=== PATIENT | female | born 1970 | race Caucasian/White ===

== ENCOUNTER → 2016-05-09 | Outpatient (CLI) | payer MEDICAID, OTHER | LOC: CIMAGING 09:24 | PROVIDERS: ATTEND Family Medicine | DX: M24.851 Other specific joint derangements of right hip, not elsewhere classified (principal); M24.852 Other specific joint derangements of left hip, not elsewhere classified; M46.97 Unspecified inflammatory spondylopathy, lumbosacral region; M76.21 Iliac crest spur, right hip; M76.22 Iliac crest spur, left hip | CPT/HCPCS: 72100-PO; 73521-PO ==

== ENCOUNTER → 2016-05-29 | Outpatient (CLI) | payer OTHER ==
[~2016-05-29] MED LIST: GADOBUTROL 10 ML VIAL IVP ONE
== END ==
LOC: FIMAGING 06:57
PROVIDERS: ATTEND Family Medicine
DX: M51.16 Intervertebral disc disorders with radiculopathy, lumbar region (principal); M51.26 Other intervertebral disc displacement, lumbar region
CPT/HCPCS: A9585

== ENCOUNTER 2016-06-14 14:32 | Emergency (ER) | payer OTHER ==
[~2016-06-14 14:32] MED LIST changes: -GADOBUTROL 10 ML VIAL IVP ONE; +NS 1,000 ML IV ONE
[2016-06-14 14:48] VITALS: RESP 18
[2016-06-14] MEDS ORDERED: ONDANSETRON 4 MG/2 ML VIAL IVP ONE (15:12)
[2016-06-14 15:18] LABS: % IMMATURE GRANULYOCYTES 0.4 % (0.0-1.1); ABSOLUTE IMMATURE GRANULOCYTES 0.03 10^3/uL (0.00-0.10); ADD DIFF? NO; ADD MORPH? NO; ADD SCAN? NO; ATYPICAL LYMPHOCYTE FLAG 10 (0-99); FRAGMENT RBC FLAG 0 (0-99); HEMATOCRIT 46.3 % (38.0-47.0); HEMOGLOBIN 15.3 g/dL (12.6-16.3); LEFT SHIFT FLG 0 (0-99); LIPEMIA HEMOLYSIS FLAG 80 (0-99); MEAN CELL HEMOGLOBIN 28.2 pg (27.9-34.1); MEAN CELL VOLUME 85.3 fL (81.5-99.8); MEAN PLATELET VOLUME 8.9 fL (8.7-11.7); PLATELET CLUMPS FLAG 0 (0-99); PLATELET COUNT 377 10^3/uL (150-400); RED BLOOD CELL COUNT 5.43 10^6/uL (4.18-5.33); RED CELL DISTRIBUTION WIDTH 13.2 % (11.5-15.2)
[2016-06-14 15:23] LABS: COLOR YELLOW; LEUKOCYTE ESTERASE,URINE NEGATIVE (NEGATIVE); NITRITE,URINE NEGATIVE (NEGATIVE)
[2016-06-14 15:33] LABS: ANION GAP 15 mEq/L (8-16); CALCIUM 9.3 mg/dL (8.5-10.4); CARBON DIOXIDE 24 mEq/l (22-31); CHLORIDE 102 mEq/L (97-110); CREATININE 0.7 mg/dL (0.6-1.0); GLOMERULAR FILTRATION RATE > 60; GLUCOSE 82 mg/dL (70-100); POTASSIUM 4.1 mEq/L (3.5-5.2); SODIUM 141 mEq/L (134-144)
[2016-06-14] MEDS ORDERED: KETOROLAC 15 MG/1 ML SDV IVP ONE (15:34)
--- NOTE | 2016-06-14 15:39 | UCPHY ---
H & P Patient Type: Established Chief Complaint Nursing Narrative: pt sent from Dr. Castaneda's office with right sided abd/flank pain, hx of kidney stones. Pain and vomiting began on sunday per pt Time Seen by Provider: 06/14/16 15:28 HPI/ROS: Chief Complaint: Right-sided back pain HPI: 45-year-old woman with a history of chronic back pain and kidney stones started having nausea and vomiting on Sunday night associated with some right- sided back pain rate with radiates around to the front. She has a history of kidney stones in the past was never had hematuria. She has required lithotripsy twice. No fevers or chills. No dysuria. Has had some constipation but no diarrhea. No abdominal pain. Has not had any relief with her usual analgesia. She did take 2 ibuprofen last night and takes cyclobenzaprine with minimal relief. No new numbness or tingling or weakness. Pain is about a 7/10. No hematuria. ROS: 10 point Review of Systems is negative except as noted in the HPI. PMH: Chronic back pain, hypothyroidism, kidney stones Medications: Cyclobenzaprine p.r.n., Synthroid Allergies: No known drug allergies Social History: No smoking, no alcohol, no recreational drug use Family History: non-contributory Physical Exam: Gen: Awake, Alert, No Distress HEENT: Nose: no rhinorrhea Eyes: PERRLA, EOMI Mouth: Moist mucosa Neck: Supple, no JVD Chest: nontender, lungs clear to auscultation Heart: S1, S2 normal, no murmur Abd: Soft, non-tender, no guarding Back: no CVA tenderness, no midline tenderness Ext: no edema, non-tender Skin: no rash Neuro: CN II-XII intact, Sensation grossly intact, Strength 5/5 in bilateral upper and lower extremities - Personal History Current Tetanus/Diphtheria Vaccine: No Current Tetanus Diphtheria and Acellular Pertussis (TDAP): No Tetanus Vaccine Date: WITHIN LAST FEW YEARS - Medical/Surgical History Hx Asthma: No Hx Chronic Respiratory Disease: No Hx Diabetes: No Hx Cardiac Disease: No Hx Renal Disease: No Hx Cirrhosis: No Hx Alcoholism: No Hx HIV/AIDS: No Hx Splenectomy or Spleen Trauma: No Other PMH: Hystectomy, chronic back pain, laminectomy L4-S1, hypothyroidism, kidney stones, lap mando - Family History Significant Family History: No pertinent family hx - Social History Smoking Status: Never smoked Constitutional: Initial Vital Signs Temperature (C) 36.4 C 06/14/16 14:36 Heart Rate 74 06/14/16 14:36 Respiratory Rate 18 06/14/16 14:36 Blood Pressure 117/83 H 06/14/16 14:36 O2 Sat (%) 98 06/14/16 14:36 O2 Delivery Mode Room Air Allergies/Adverse Reactions: venom-honey bee [bee venom (honey bee)] Allergy (Intermediate, Verified 14:36) Other-Enter Comments Home Medications: Medication Instructions Recorded Levothyroxine Sodium [Synthroid] 50 mcg PO 06/11/10 Cyclobenzaprine 06/14/16 Medical Decision Making - Diagnostics Imaging Results: Imaging Impressions Abdomen/Pelvis CT 06/14/16 15:34 Impression: 1. There is no evidence of nephroureterolithiasis, although there is some mild right pelvocaliectasis without ureteral dilatation. This exam does not exclude pyelonephritis. 2. Status post cholecystectomy and hysterectomy. Findings were discussed with Idris Bullard MD at 16:46, on 06/14/2016. Attention: This CT examination is specifically designed to evaluate patients who are clinically suspected of having acute obstructive uropathy. This examination does not use radiographic contrast, and as such, provides only a limited evaluation of the abdomen, pelvis, and retroperitoneum. If there is further clinical suspicion for pathological conditions other than obstructive uropathy, a complete CT evaluation of the abdomen and pelvis utilizing intravenous, oral, and rectal contrast should be considered. Imaging: Discussed imaging studies w/ dyed yarn operator Radiologist ED Course/Re-evaluation: CT scan is negative. No evidence of acute kidney stone or acute intra-abdominal process. Patient is feeling little bit queasy but is tolerating p.o. and is otherwise feeling improved. Will discharge with oral antiemetics and follow up with primary care physician. She will return to the emergency department for uncontrolled nausea vomiting, worsening pain, fevers, chills, or any other concerns. - Data Points Laboratory Results: Laboratory Results 06/14/16 15:00 06/14/16 15:00 06/14/16 06/14/16 06/14/16 15:00 15:00 15:00 WBC 7.85 10^3/uL 10^3/uL (3.80-9.50) RBC 5.43 10^6/uL H 10^6/uL (4.18-5.33) Hgb 15.3 g/dL g/dL (12.6-16.3) Hct 46.3 % % (38.0-47.0) MCV 85.3 fL fL (81.5-99.8) MCH 28.2 pg pg (27.9-34.1) MCHC 33.0 g/dL g/dL (32.4-36.7) RDW 13.2 % % (11.5-15.2) Plt Count 377 10^3/uL 10^3/uL (150-400) MPV 8.9 fL fL (8.7-11.7) Neut % (Auto) 59.4 % % (39.3-74.2) Lymph % (Auto) 30.4 % % (15.0-45.0) [place] % (Auto) 7.1 % % (4.5-13.0) Eos % (Auto) 2.2 % % (0.6-7.6) Baso % (Auto) 0.5 % % (0.3-1.7) Nucleat RBC Rel Count 0.0 % % (0.0-0.2) Absolute Neuts (auto) 4.66 10^3/uL 10^3/uL (1.70-6.50) Absolute Lymphs (auto) 2.39 10^3/uL 10^3/uL (1.00-3.00) Absolute Monos (auto) 0.56 10^3/uL 10^3/uL (0.30-0.80) Absolute Eos (auto) 0.17 10^3/uL 10^3/uL (0.03-0.40) Absolute Basos (auto) 0.04 10^3/uL 10^3/uL (0.02-0.10) Absolute Nucleated RBC 0.00 10^3/uL 10^3/uL (0-0.01) Immature Gran % 0.4 % % (0.0-1.1) Immature Gran # 0.03 10^3/uL 10^3/uL (0.00-0.10) Sodium 141 mEq/L mEq/L (134-144) Potassium 4.1 mEq/L mEq/L (3.5-5.2) Chloride 102 mEq/L mEq/L (97-110) Carbon Dioxide 24 mEq/l mEq/l (22-31) Anion Gap 15 mEq/L mEq/L (8-16) BUN 11 mg/dL mg/dL (7-23) Creatinine 0.7 mg/dL mg/dL (0.6-1.0) Estimated GFR > 60 Glucose 82 mg/dL mg/dL (70-100) Calcium 9.3 mg/dL mg/dL (8.5-10.4) Urine Color YELLOW Urine Appearance CLEAR Urine pH 6.0 (5.0-7.5) Ur Specific [place] <= 1.005 (1.002-1.030) Urine Protein NEGATIVE (NEGATIVE) Urine Ketones NEGATIVE (NEGATIVE) Urine Blood NEGATIVE (NEGATIVE) Urine Nitrate NEGATIVE (NEGATIVE) Urine Bilirubin NEGATIVE (NEGATIVE) Urine Urobilinogen 0.2 EU EU (0.2-1.0) Ur Leukocyte Esterase NEGATIVE (NEGATIVE) Ur Culture Indicated? NOT INDICATED (NI) Urine Glucose NEGATIVE (NEGATIVE) Medications Given: Discontinued Medications Ketorolac Tromethamine (Toradol) 15 mg IVP EDNOW ONE Stop: 06/14/16 15:35 Last Admin: 06/14/16 16:03 Dose: 15 mg Ondansetron HCl (Zofran) 4 mg IVP EDNOW ONE Stop: 06/14/16 15:13 Last Admin: 06/14/16 15:24 Dose: 4 mg Ondansetron HCl (Zofran Odt 4 Mg Prepack#2) 1 btl TAKEHOME EDNOW ONE Stop: 06/14/16 17:04 Last Admin: 06/14/16 17:15 Dose: 1 btl Departure - Departure Disposition: Home, Routine, Self-Care Clinical Impression: Back pain, Vomiting Condition: Good Instructions: Acute Nausea and Vomiting (ED), Chronic Back Pain (ED) Additional Instructions: May take ondansetron for nausea and vomiting. Please try to drink plenty of fluids. Follow up with primary care physician in 3-4 days for re-evaluation. Return to the emergency department for uncontrolled nausea vomiting, worsening pain, fevers, chills, or any other concerns. Referrals: Hernando Garcia, [Primary Care Provider] - As per Instructions - PQRS PQRS Measurement: NA
[2016-06-14] MEDS ORDERED: ONDANSETRON 4MG PREPACK#2 BTL TAKEHOME ONE (17:03)
[2016-06-14 17:34] VITALS: BP 112/62; PULSE 78; TEMP 98; O2SAT 96
== END 2016-06-14 17:34 | disposition home or self-care (01) ==
LOC: CED 14:32
DX: M54.9 Dorsalgia, unspecified (principal); R11.10 Vomiting, unspecified; G89.29 Other chronic pain; Z87.442 Personal history of urinary calculi
CPT/HCPCS: 74176-PO; 80048-PO; 81003-PO; 85025-PO; 96361-PO; 96374-PO; 96375-PO; 99214-PO; G0463-PO; J1885; J2405

== ENCOUNTER → 2016-08-04 | Outpatient (CLI) | payer OTHER ==
[~2016-08-04] MED LIST changes: +FUROSEMIDE 40 MG/4 ML VIAL ONE; -NS 1,000 ML IV ONE
== END ==
LOC: FIMAGING 14:39
PROVIDERS: ATTEND Specialist
PROC: CT131ZZ Planar Nuclear Medicine Imaging of Kidneys, Ureters and Bladder using Technetium 99m (Tc-99m) (ICD-10-PCS; principal; 2016-08-04)
DX: N13.39 Other hydronephrosis (principal); Z98.890 Other specified postprocedural states; Z90.710 Acquired absence of both cervix and uterus
CPT/HCPCS: 78707; A9562; J1940

== ENCOUNTER 2018-02-01 09:42 | Emergency (ER) | payer SELFPAY ==
[2018-02-01] MEDS ORDERED: ONDANSETRON 4 MG/2 ML VIAL IVP ONE (09:48)
[2018-02-01] MEDS ORDERED: NS 1,000 ML IV ONE (09:48)
[2018-02-01] MEDS ORDERED: HYDROmorphONE/DILAUDID 2 MG/ML INJ IVP ONE (10:11)
--- NOTE | 2018-02-01 10:15 | EDPHY ---
H & P Time Seen by Provider: 02/01/18 09:48 HPI/ROS: HPI Right flank pain. History of kidney stones. 47-year-old female by private vehicle with daughter. This patient has a history of large kidney stones in offer requires interventional management secondary to them getting stuck in her right ureter. Her urologist is Dr. Velázquez. She reports that she started feeling some vague flank pain with radiation to the right lower quadrant on Sunday. She reports over the last 12 hr this pain has gotten much worse. Described as cramping and aching and consistent with her prior kidney stones. Denies any urinary complaints. ROS: Constitutional: No fever, no chills. No weakness. Eyes: No discharge. No changes in vision. ENT: No sore throat. No nasal congestion or rhinorrhea. Respiratory: No cough. No shortness of breath. Cardiac: No chest pain, no palpitations. Gastrointestinal: As above, no vomiting, no diarrhea. Genitourinary: No hematuria. No dysuria or increased frequency with urination. Musculoskeletal: As above. No neck pain. No myalgias or arthralgias. Skin: No rashes. Neurological: No headache. No focal weakness or altered sensation. Past medical history: Hysterectomy, chronic back pain, L4-S1 laminectomy, kidney stones as noted above, laparoscopic cholecystectomy. Social history: Nonsmoker. Here with her daughter. No alcohol. Physical Exam: General Appearance: Alert, she appears uncomfortable but not in distress. This patient is responding to questions appropriately and in full sentences. This patient appears well-hydrated and well-nourished. Eyes: Pupils equal and round no pallor or injection. No lid edema, erythema or injection. Respiratory: There are no retractions, lungs are clear to auscultation with good air movement bilaterally. Cardiovascular: Regular rate and rhythm. No murmur. Gastrointestinal: Obese habitus. Abdomen is soft with vague and mild right lower quadrant tenderness on palpation, no masses, bowel sounds normal. No focal tenderness at McBurney's point. No Orantes sign. Neurological: Motor sensory function is grossly intact. Cranial nerves are normal. Gait is normal. Skin: Warm and dry, no rashes. Musculoskeletal: Mild right CVA tenderness. No left-sided CVA tenderness on palpation. Extremities are symmetrical. All joints range without pain or impingement. Psychiatric: No agitation. No depression. Database: EKG: Imaging: CT abdomen and pelvis without contrast: Mild amount of stranding around the right kidney. She has a small renal calculi in the pelvis. This is otherwise an unremarkable study. Results consistent with either an early pyelonephritis versus a recently passed kidney stone. Results were discussed with staff radiologist. Procedures: Emergency department course: Triage vital signs reviewed and are normal. IV placed. She was placed on a monitor. She was started on IV normal saline with 1 L to be given over the next hour. She will initially be given 0.5 mg of IV hydromorphone for pain control and 4 mg of IV Zofran for nausea. Pending a normal creatinine she will be given 30 mg of IV Toradol. CT scan to be obtained. Patient consents to workup. 11:00 a.m., the patient was re-evaluated. She is resting comfortably at this time. Vital signs reviewed and are normal. She states that she does not have any pain currently. Results of her CT scan discussed with her. Her urinalysis is normal. No indication of infection. She likely had a small stone that just recently passed. She feels comfortable going home at this time and I feel she is safe for discharge. Follow-up and return to emergency department precautions reviewed with her. All of her questions were answered. She was discharged in good condition with her daughter. Differential Diagnosis: The differential diagnosis on this patient includes but is not limited to ureterolithiasis. Appendicitis, colitis, urinary tract infection unlikely. This represents a partial list of diagnoses considered. These considerations are based on history, physical exam, past history, reassessment and diagnostic testing. Smoking Status: Never smoked Constitutional: Initial Vital Signs Temperature (C) 36.5 C 02/01/18 09:55 Heart Rate 90 02/01/18 09:55 Respiratory Rate 18 02/01/18 09:55 Blood Pressure 132/71 H 02/01/18 09:55 O2 Sat (%) 98 02/01/18 09:55 O2 Delivery Mode Room Air Allergies/Adverse Reactions: venom-honey bee [bee venom (honey bee)] Allergy (Intermediate, Verified 09:54) Other-Enter Comments Home Medications: Medication Instructions Recorded Levothyroxine Sodium [Synthroid] 50 mcg PO 06/11/10 Medical Decision Making - Diagnostics Imaging Results: Imaging Impressions Abdomen/Pelvis CT 02/01/18 10:11 Impression: Right nephrolithiasis with mild right perinephric stranding which may represent recently passed stone, underlying infection, or scarring. Recommend correlation with urine studies. Findings and recommendations discussed with Cary Carter MD at 1044 hour, 02/01/2018. - Data Points Laboratory Results: 02/01/18 10:07 POC Sodium 145 mEq/L mEq/L (135-145) POC Potassium 3.0 mEq/L L mEq/L (3.3-5.0) POC Chloride 104.0 mEq/L mEq/L (97-110) POC Total CO2 25 mEq/L mEq/L (22-31) POC BUN 9 mg/dL mg/dL (7-23) POC Creatinine 0.7 mg/dL mg/dL (0.6-1.0) POC Glucose 112 mg/dL H mg/dL (70-100) POC Calcium 9.1 mg/dL mg/dL (8.5-10.4) Medications Given: Discontinued Medications Hydromorphone HCl (Dilaudid) 0.5 mg IVP EDNOW ONE Stop: 02/01/18 10:12 Last Admin: 02/01/18 10:16 Dose: 0.5 mg Sodium Chloride (Ns) 1,000 mls @ 0 mls/hr IV EDNOW ONE; Wide Open PRN Reason: Protocol Stop: 02/01/18 09:49 Last Admin: 02/01/18 10:15 Dose: 1,000 mls Ondansetron HCl (Zofran) 4 mg IVP EDNOW ONE Stop: 02/01/18 09:49 Last Admin: 02/01/18 10:14 Dose: 4 mg Point of Care Test Results: Chemistry 02/01/18 10:07 POC Sodium 145 mEq/L mEq/L (135-145) POC Potassium 3.0 mEq/L L mEq/L (3.3-5.0) POC Chloride 104.0 mEq/L mEq/L (97-110) POC Total CO2 25 mEq/L mEq/L (22-31) POC BUN 9 mg/dL mg/dL (7-23) POC Creatinine 0.7 mg/dL mg/dL (0.6-1.0) POC Glucose 112 mg/dL H mg/dL (70-100) POC Calcium 9.1 mg/dL mg/dL (8.5-10.4) Urine Dip Collection Date 02/01/18 Collection Time 10:00 Specific [place] (1.002-1.030) 1.030 PH (5.0-7.5) 5.5 Leukocytes (Negative) Negative Nitrites (Negative) Negative Protein (Negative) Negative Glucose (Negative) Negative Ketones (Negative) Negative Urobilnogen (0.2-1.0 EU) 0.2 Bilirubin (Negative) Negative Blood (Negative) Negative Departure - Departure Disposition: Home, Routine, Self-Care Clinical Impression: Kidney stone on right side, Acute right flank pain Condition: Good Instructions: Kidney Stones (ED), Flank Pain (ED) Additional Instructions: Read and follow provided instructions. Follow-up with your primary care physician as needed on Sunday for re- evaluation. Take your medication as prescribed. Return to the emergency department for return of pain, fever, nausea and vomiting or other serious concerns. Referrals: Hernando Garcia, [Primary Care Provider] - As per Instructions
[2018-02-01 11:09] VITALS: BP 107/70
== END 2018-02-01 11:08 | disposition home or self-care (01) ==
LOC: CED 09:42
DX: N20.0 Calculus of kidney (principal)
CPT/HCPCS: 74176-PO; 80048-PO; 96374; J1170; J2405

== ENCOUNTER 2018-07-17 09:59 | Emergency (ER) | payer OTHER ==
[2018-07-17] MEDS ORDERED: NS 1,000 ML IV ONE (10:13)
[2018-07-17] MEDS ORDERED: ONDANSETRON 4 MG/2 ML VIAL IVP ONE (10:13)
[2018-07-17] MEDS ORDERED: ONDANSETRON DISINTEGRATING 4 MG TAB PO ONE (10:29)
--- NOTE | 2018-07-17 11:02 | EDPHY ---
H & P Stated Complaint: Pt. states rt flank pain and nausea Time Seen by Provider: 07/17/18 10:06 HPI/ROS: 47 yo F with hx of kidney stones usually on the right presents today with right flank pain, nausea, vomiting, stating she just needs to pass this stone. She is currently refusing an IV or labs and just wants nausea medicine for now. Last seen here on February 01, [address] scan with some stranding around the kidney, a small stone in the right pelvis and no signs of obstructive uropathy. ros as per hpi General no fever no chills no weakness HEENT no eye pain no eye discharge. No eye redness, no sore throat Respiratory no cough, no shortness of breath Cardiac no chest pain, no peripheral edema GI no abdominal pain, no diarrhea, no constipation, pos nausea, pos vomiting pos right flank pain, no hematuria, no dysuria Musculoskeletal no myalgias, no joint pain Heme no easy bruising, no easy bleeding Endo no polyuria, no polydipsia Skin no rashes, no pruritus Neuro no syncope, no dizziness, no headaches Psych is no suicidal ideation, no homicidal ideation Source: Patient Exam Limitations: Clinical condition - Personal History LMP (Females 10-55): Post Menopausal Tetanus Vaccine Date: WITHIN LAST FEW YEARS - Medical/Surgical History Hx Asthma: No Hx Chronic Respiratory Disease: No Hx Diabetes: No Hx Cardiac Disease: No Hx Renal Disease: No Hx Cirrhosis: No Hx Alcoholism: No Hx HIV/AIDS: No Hx Splenectomy or Spleen Trauma: No Other PMH: Hystectomy, chronic back pain, laminectomy L4-S1, hypothyroidism, kidney stones, lap mando - Family History Significant Family History: No pertinent family hx - Social History Smoking Status: Never smoked Alcohol Use: Rarely Drug Use: Marijuana - Physical Exam Exam: 47 yo F alert and oriented with moderate right flank pain in waves, vss, afebrile Atraumatic normocephalic eomi, aniicteric Neck no JVD Lungs clear to auscultation, no respiratory distress Heart regular rate and rhythm abd obese , bowel sounds present, no focal ttp, no guarding no rebound pos right cvat Extremities no cyanosis clubbing edema Constitutional: Initial Vital Signs Temperature (C) 36.4 C 07/17/18 10:21 Heart Rate 79 07/17/18 10:21 Respiratory Rate 16 07/17/18 10:21 Blood Pressure 125/79 H 07/17/18 10:21 O2 Sat (%) 95 07/17/18 10:21 O2 Delivery Mode Room Air Allergies/Adverse Reactions: venom-honey bee [bee venom (honey bee)] Allergy (Intermediate, Verified 10:13) Other-Enter Comments Home Medications: Medication Instructions Recorded Levothyroxine Sodium [Synthroid] 50 mcg PO 06/11/10 Medical Marijuana 07/17/18 Methylphenidate 10 mg 07/17/18 Medical Decision Making ED Course/Re-evaluation: Patient seen for right flank pain with history of prior kidney stone. Patient offered IV fluids and nausea medicine as well as pain medication Initially she wanted an IV and then shortly thereafter she decided she did not want an IV but wanted to try nausea medicine. Urine dip with trace blood She was given ondansetron 4 mg ODT Approximately 30-45 minutes later she stated she was feeling markedly better and did not want any further workup or interventions for her right flank pain. She stated her flank pain had resolved and she just wanted to go home and go to sleep. Impression Renal colic Plan Discharge home Differential Diagnosis: Differential diagnosis considered but not limited to Urinary tract infection, pyelonephritis, obstructive uropathy - Data Points Medications Given: Discontinued Medications Ondansetron HCl (Zofran Odt) 4 mg PO EDNOW ONE Stop: 07/17/18 10:30 Last Admin: 07/17/18 10:31 Dose: 4 mg Point of Care Test Results: Urine Collection Date 07/17/18 Collection Time 10:10 HCG Results Negative Urine Dip Collection Date 07/17/18 Collection Time 10:10 Specific [place] (1.002-1.030) 1.025 PH (5.0-7.5) 5.5 Leukocytes (Negative) Negative Nitrites (Negative) Negative Protein (Negative) Negative Glucose (Negative) Negative Ketones (Negative) 1+ Urobilnogen (0.2-1.0 EU) 4.0 Bilirubin (Negative) Test Not Performed Blood (Negative) Trace Departure - Departure Disposition: Home, Routine, Self-Care Clinical Impression: Renal colic on right side Condition: Good Instructions: Renal Colic (ED) Additional Instructions: Please return if you feel we can provide you with any further help. Referrals: Otteman,Hernando B, DO [Primary Care Provider] - As per Instructions
[2018-07-17 11:41] VITALS: BP 139/100
== END 2018-07-17 11:15 | disposition home or self-care (01) ==
LOC: CED 09:59
DX: N23 Unspecified renal colic (principal)
CPT/HCPCS: 81025-ER; 99283-ER